=== PATIENT | male | born 1965 | race Caucasian/White ===

== ENCOUNTER → 2018-11-30 | Outpatient (CLI) | payer OTHER ==
[~2018-11-30] MED LIST: 0.9 % SODIUM CHLORIDE 10 ML DISP.SYRIN. ID ONE; CONTRAST GIVEN. MC PRN; GADOBUTROL 7.5 MMOL/7.5 ML VIAL INT ART ONE; IOHEXOL 300 MG/ML 50 ML VIAL. INT ART ONE; LIDOCAINE 1% Multi-Dose 20 ML VIAL. ID ONE
--- NOTE | 2018-11-30 13:39 | KCIC ---
EXAM: MR arthrogram right shoulder DATE: 11/30/2018 11:45 AM COMPARISON: None INDICATION: Right shoulder pain, history of prior rotator cuff surgery. TECHNIQUE: Multiplanar, multisequence MRI of the right shoulder was performed following the administration of intra-articular gadolinium contrast. Please see separate procedure report for full details. FINDINGS: Iatrogenic distention of the right glenohumeral joint with gadolinium contrast. Subacromial-subdeltoid bursal fluid without gadolinium characteristics, likely bursitis. There is a high-grade partial-near full-thickness tear of the anteriormost fibers of the supraspinatus tendon involving greater than 90% tendon thickness measuring approximately 1 cm in AP dimension. This extends posteriorly as a partial-thickness articular sided tear involving approximately 50% tendon thickness measuring approximately 1.6 cm in AP dimension. There is also a partial-thickness articular sided tear of the superior fibers of the subscapularis tendon measuring 1.4 cm in cranial caudal dimension. Background of increased signal within the distal supraspinatus and infraspinatus tendons consistent with mild tendinosis. There is no fatty atrophy of the rotator cuff muscle bellies. No evidence for acute fracture or osteonecrosis. Cystic degenerative changes are seen within the anterior humeral head. Overlying chondral thinning is seen. Changes of distal clavicular resection and acromioplasty are seen. Susceptibility artifact is seen within the humeral head. Intra-articular long head biceps tendon is not seen, likely from biceps tenodesis. The labrum is diminutive anteriorly and superiorly, possibly postsurgical although diffuse tear is not excluded. No discrete labral tear is identified. IMPRESSION: 1. Near full-thickness articular sided tear of the anteriormost fibers of the supraspinatus tendon which extends posteriorly as a partial-thickness articular sided tear involving 50% tendon thickness. 2. Partial-thickness articular sided tear of the subscapularis tendon involving approximately 50% tendon thickness. 3. Intra-articular long head biceps tendon is not seen, likely from prior biceps tenodesis. 4. Diminutive/absent appearance of the anterior and superior labrum, possibly postsurgical although diffuse labral tear is not excluded. No additional discrete labral tear is identified. Electronically signed by: Dario Diaz MD (11/30/2018 1:37 PM) [id number]
--- NOTE | 2018-11-30 13:41 | KCIC ---
EXAM: Right glenohumeral joint injection WITH Fluoroscopic guidance DATE: 11/30/2018 10:45 AM CLINICAL HISTORY: Right shoulder pain COMPARISON: None pertinent TECHNIQUE: The patient was informed of the indications and alternatives for this procedure as well as risks and benefits. No immediate contraindication identified. The patient provided informed, written consent. Laterality was confirmed by the entire team following a time out. Following initial right glenohumeral joint localization, a suitable area was sterilely prepped and draped. Local anesthesia was administered with 1% xylocaine. With intermittent fluoroscopic observation, a 22-gauge spinal needle was advanced into the right glenohumeral joint sheath/capsule with confirmation of intra-synovial position with infusion of less than 1 cc iodinated contrast. Subsequent infusion 9 cc solution containing 10 cc saline, 5 cc lidocaine 1%, 5 cc Isovue and 0.1 cc gadolinium. Significant pressure was required during injection, which may be seen with adhesive capsulitis. Hemostasis with local pressure. Local clinical exam negative for immediate complication. Patient informed re local potential signs or symptoms that may indicate need to return to ER/Ordering physician for further evaluation. Patient informed re precautionary measures after intra-synovial injection of anesthetic. Patient expressed understanding. Performing Physicians: Dr. Clark Diaz Blood Loss: 0 cc Total Fluoroscopy time: 7 seconds Total spot images taken: 0 Total fluoroscopic screen save images: 2 IMPRESSION: 1. Successful intra-synovial injection of gadolinium [id number] arthrogram per clinical request. 2. Of note, significant pressure was encountered with injection, which may be seen with adhesive capsulitis. Electronically signed by: Dario Diaz MD (11/30/2018 1:38 PM) [id number]
== END | disposition home or self-care (01) ==
LOC: KCIC 10:12
PROVIDERS: ATTEND Orthopaedic Surgery
DX: M75.111 Incomplete rotator cuff tear or rupture of right shoulder, not specified as traumatic (principal); M25.511 Pain in right shoulder
CPT/HCPCS: 23350; 73040; 73222; A9585; Q9967